=== PATIENT | female | born 2000 ===

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

== ENCOUNTER 2022-09-20 17:37 | Emergency (ER) | payer MEDICAID | END 2022-09-20 19:17 | disposition left against medical advice (07) | LOC: ER 17:39 | DX: Z00.00 Encounter for general adult medical examination without abnormal findings (principal); Z53.21 Procedure and treatment not carried out due to patient leaving prior to being seen by health care provider ==